=== PATIENT | male | born 1955 | race African-American/Black ===

== ENCOUNTER 2021-03-13 06:25 | Inpatient (IN) | payer MEDICAID ==
[~2021-03-13] VITALS: Ht 175.3 cm; Wt 116.8 kg
[2021-03-13 09:33] VITALS: BP 145/65; BMI 38.0
[2021-03-13 09:44] LABS: EOSINOPHILS 4.7 % (0-7); HEMATOCRIT 31.9 % (42.0-54.0); HEMOGLOBIN 10.8 g/dL (13.5-17.5); LYMPHOCYTES 25.8 % (15-50); MCH 31.8 pg (26.0-34.0); MCHC 33.9 g/dL (31.0-37.0); MCV 93.7 fL (80.0-100.0); MONOCYTES 14.4 % (2-11); NEUTROPHILS 54.1 % (40-80); PLATELET COUNT 92 10x3/uL (130-400); RDW 14.2 % (11.5-14.5); WBC 4.4 10x3/uL (4.8-10.8)
[2021-03-13 10:04] LABS: ANION GAP 11.3 mmol/L (8-16); CALCIUM 8.9 mg/dL (8.5-10.1); CARBON DIOXIDE 27.1 mmol/L (21.0-32.0); CREATININE - SERUM 2.6 mg/dL (0.6-1.3); POTASSIUM - SERUM 4.4 mmol/L (3.5-5.1)
[2021-03-13] MEDS ORDERED: HCTZ25 MG PO (10:29)
[2021-03-13] MEDS ORDERED: LASIX40 MG PO (10:29)
[2021-03-13] MEDS ORDERED: HYDRALAZINE HCL25 MG PO (10:29)
[2021-03-13] MEDS ORDERED: CLONIDINE HCL0.1 MG PO (10:29)
[2021-03-13] MEDS ORDERED: CYMBALTA30 MG PO (10:30)
[2021-03-13] MEDS ORDERED: VITAMIN D325 MC1 PO (10:30)
[2021-03-13] MEDS ORDERED: COZAAR100 MG PO (10:31)
[2021-03-13] MEDS ORDERED: ZYRTEC10 MG PO (10:31)
[2021-03-13] MEDS ORDERED: FERROUS SULFAT325 MG PO (10:31)
[2021-03-13] MEDS ORDERED: ASPIRIN81 MG PO (10:31)
[2021-03-13] MEDS ORDERED: ACETAMINOPHEN500 M1 PO (10:32)
[2021-03-13] MEDS ORDERED: FLUTICASONE PRO16 GM NASAL (10:32)
[2021-03-13] MEDS ORDERED: OMEPRAZOLE20 M1 PO (10:33)
[2021-03-13] MEDS ORDERED: FLOMAX0.4 MG PO (10:33)
[2021-03-13] MEDS ORDERED: LIPITOR20 MG PO (10:33)
[2021-03-13] MEDS ORDERED: PIOGLITAZONE15 MG PO (10:34)
[2021-03-13] MEDS ORDERED: METOPROLOL TART50 MG PO (10:34)
[2021-03-13] MEDS ORDERED: NORVASC10 MG PO (10:35)
[2021-03-13] MEDS ORDERED: K-TAB10 MEQ PO (10:36)
[2021-03-13 14:04] LABS: PLATELET ESTIMATE DECREASED
--- NOTE | 2021-03-13 15:36 | HP ---
PATIENT: MARIBEL GONZALEZ MEDICAL RECORD: [id number] ACCOUNT: [id number] LOCATION:[facility] : 57 ADMISSION DATE: 03/13/21 PCP: No PCP HISTORY AND PHYSICAL EXAMINATION CHIEF COMPLAINT: Cirrhosis. HISTORY OF PRESENT ILLNESS: The patient has been treated for hepatitis C. I am here to evaluate him for esophageal varices. He has had no dysphagia. He does have significant reflux. It sounds like volume reflux that he has at night. He refluxes up into his hypopharynx with some spill over into the trachea. A consent form was signed. MEDICINES: At the skilled nursing, have been reviewed. He is not on a blood thinner. ALLERGIES: HE HAS GOT SEASONAL ALLERGIES. SOCIAL HISTORY: Nonsmoker. PAST MEDICAL AND SURGICAL HISTORY: Hypertension; non-insulin dependent diabetes mellitus; chronic kidney disease, he is not on dialysis however; hyperlipidemia; benign prostatic hypertrophy. PHYSICAL EXAMINATION: GENERAL: The patient does not appear acutely ill. He does not appear chronically ill. VITAL SIGNS: Reviewed. EARS: External ears appear normal. EYES: Extraocular movements are intact. NECK: Trachea is midline. CHEST: No intercostal retractions. PULMONARY: Nonlabored. No stridor. IMPRESSION: History of hepatitis C, evaluated for varices. He has had no history of variceal bleeding. No emesis, no hematochezia, no melena. PLAN: EGD. TRANSINT:[id number] Voice Confirmation ID: [id number] DOCUMENT ID: [id number] cc: Dr. Mathieu Prajapati [phone] DORIE SCOTT MD at 1536 CC: DR. MATHIEU PRAJAPATI [phone] DICTATION DATE: 03/13/21 1129 SPRING ASSEMBLER SUPERVISOR: 03/13/21 1147 [address] [place] [address]
--- NOTE | 2021-03-13 15:36 | OP ---
PATIENT NAME: MARIBEL GONZALEZ MEDICAL RECORD: [id number] :57 LOCATION:[facility] ADMISSION DATE: SURGEON: DORIE SCOTT MD DATE OF OPERATION: 03/13/2021 PREOPERATIVE DIAGNOSIS: Hepatitis C, needs a variceal screening. POSTOPERATIVE DIAGNOSES: 1. Hepatitis C, needs a variceal screening. 2. Laryngospasm. 3. Multiple gastric polyps. 4. Moderate portal hypertensive gastritis. 5. No esophageal varices. PROCEDURE: Esophagogastroduodenoscopy with antral biopsy. SURGEON: Dorie Scott MD ENAMEL PULVERIZER: None. BLOOD LOSS: Minimal. ANESTHESIA: IV sedation with conversion to endotracheal anesthesia. The risks, possible complications and alternatives of the procedure were explained to the patient. He elects to proceed. The patient gives a history of some volume reflux symptoms that occur at night. ENDOSCOPIC COURSE: The patient was conveyed to the endoscopy suite electively on 03/13/2021. IV sedation was induced by the anesthesia staff. A bite block was inserted. Gastroscope was inserted into the mouth. It was advanced easily into the hypopharynx. Esophagus was easily intubated as well as stomach and duodenum. Upon withdrawal, retroflexed and angulus views were obtained. I was going to perform a hot biopsy forceps polypectomy and the patient had a sudden desaturation and I removed the gastroscope immediately. We began ventilating the patient with bag valve mask. The patient continued to have desaturations. Additional anesthesia personnel were called and a LMA was placed. We were able to ventilate the patient better with LMA. The anesthesia staff then placed an endotracheal tube. We then resumed the procedure. A bite block was inserted. A gastroscope was inserted into the mouth and was advanced easily into the hypopharynx. The esophagus was easily intubated as well as the stomach. A cold biopsy was obtained to rule out H. pylori. I did not attempt to remove any of the polyps. I slowly withdrew the endoscope up through the esophagus and noted no esophageal varices. There was some blood going down the esophagus, which I washed out, and some blood in the hypopharynx as well. I could not determine the source of any injury or the source of any bleeding. The gastroscope was removed. The patient was then conveyed to the recovery room where he extubated and seems to be doing well about a half hour later. My recommendation is going to be that he return and have the polyps removed as some of them appeared adenomatous and may have bled. This is going to need to be done in the operating room under general anesthesia. Also, I am going to tell Dr. Prajapati that I think the patient likely has sleep apnea and in this circumstance likely had volume reflux that went up and penetrated the cord OPERATIVE REPORT [id number] MARIBEL GONZALEZ causing the laryngospasm. He may be a candidate for sleep study and CPAP as I will bet that he is having significant desaturations and perhaps even laryngospasm at the [facility]. TRANSINT:[id number] Voice Confirmation ID: [id number] DOCUMENT ID: [id number] cc: Dr. Mathieu Prajapati, DORIE SCOTT MD at 1536 CC: DR. MATHIEU PRAJAPATI [phone] DICTATION DATE: 03/13/21 1324 CYBER SECURITY ENGINEER: 03/13/21 1356 [address] [facility] [address] [place] [address]
--- NOTE | 2021-03-13 16:29 | NUR ---
1345 REPORT OF O2 SAT LESS THAN 90% ON ROOM AIR TO Diogenes PARNELL CRNA. REPORT TO DR. RODRIGUES. ORDER RECEVIED FOR CXR. Juanjose JAIMES R.N. [address] SCOTT. ORDERS RECEIVED FOR UPDRAFT. UP TO BATHROOM VOIDED. SHIVERING. COMPLAINS OF FEELING COLD. TEMPORAL TEMP 97.3. Juanjose JAIMES R.N. 1430 BREATHING TREATMENTS COMPLETED. ON ROOM AIR O2 SAT 91%. Juanjose Michel.N. [address] SCOTT. Juanjose JAIMES R.N. 1510 UP TO BATHROOM, VOIDED. SHIVERING. ROUNDS BY DR. SCOTT. ADC GUARDS X'S 2 @ BEDSIDE. Juanjose JAIMES R.N.
--- NOTE | 2021-03-13 16:46 | NUR ---
4207 REPORT TO ANT PATEL R.N. PER PHONE. Juanjose JAIMES R.N.
[2021-03-13 17:21] VITALS: BP 170/79; Ht 175.3 cm; Wt 116.8 kg
--- NOTE | 2021-03-13 18:43 | NUR ---
PATIENT PLACED ON CONTINUOUS PULSE OX, SATURATION AT 95% ON RA
[2021-03-13 20:00] VITALS: BP 161/73
--- NOTE | 2021-03-13 20:00 | NUR ---
PT SITTING UP ON SIDE OF BED, AOX4. GUARD AT BEDSIDE. CONT PULSE OX ON. O2 97% ON 2L/NC. DENIES NEEDS AT THIS TIME. CL IN REACH
[2021-03-13 23:53] VITALS: BP 168/80
[2021-03-14 03:45] VITALS: BP 174/86
[2021-03-14 05:54] LABS: BASOPHILS 0.4 % (0-2); EOSINOPHILS 0.2 % (0-7); HEMATOCRIT 32.1 % (42.0-54.0); MCH 31.8 pg (26.0-34.0); MCHC 34.2 g/dL (31.0-37.0); MCV 92.9 fL (80.0-100.0); MEAN PLATELET VOLUME 9.7 fL (7.4-10.4); MONOCYTES 10.7 % (2-11); NEUTROPHILS 80.7 % (40-80); RBC 3.45 10x6/uL (4.20-6.10)
[2021-03-14 06:02] LABS: PLATELET COUNT 112 10x3/uL (130-400); WBC 10.1 10x3/uL (4.8-10.8)
[2021-03-14 06:04] LABS: ALBUMIN 3.6 g/dL (3.4-5.0); BILIRUBIN - TOTAL 0.5 mg/dL (0.2-1.3); CALCIUM 8.7 mg/dL (8.5-10.1); CARBON DIOXIDE 23.3 mmol/L (21.0-32.0); CREATININE - SERUM 2.4 mg/dL (0.6-1.3); MAGNESIUM - SERUM 1.8 mg/dL (1.8-2.4); PHOSPHOROUS 5.2 mg/dL (2.5-4.9); POTASSIUM - SERUM 4.3 mmol/L (3.5-5.1); PROTEIN - SERUM 7.4 g/dL (6.4-8.2)
--- NOTE | 2021-03-14 07:46 | NUR ---
RECIEVED BEDSIDE REPORT. BED LOW POSITION, CALL LIGHT IN REACH. SITTING UP ON SIDE OF THE BED. GUARD AT BEDSIDE. DENIES NEEDS AT THIS TIME. FREE FROM SIGNS OF DISTRESS. WILL CONTINUE TO MONITOR.
[2021-03-14 08:37] VITALS: BP 113/71
--- NOTE | 2021-03-14 09:34 | NUR ---
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 DISCUSSED WITH [facility] GROUP SALES MANAGER.
[2021-03-14 12:46] VITALS: BP 152/66
[2021-03-14 16:49] VITALS: BP 173/80
--- NOTE | 2021-03-14 19:46 | NUR ---
PT SITTING UP ON SIDE OF BED WITHOUT DISTRESS, GUARD AT BEDSIDE. AOX4. DENIES NEEDS OR PAIN AT THIS TIME. CL IN REACH
[2021-03-14 20:59] VITALS: BP 186/84
[2021-03-14 23:55] VITALS: BP 169/80
[2021-03-15 03:51] VITALS: BP 174/75
[2021-03-15 06:35] LABS: BASOPHILS 0.6 % (0-2); EOSINOPHILS 1.6 % (0-7); HEMATOCRIT 27.9 % (42.0-54.0); HEMOGLOBIN 9.4 g/dL (13.5-17.5); LYMPHOCYTES 16.2 % (15-50); MCH 31.7 pg (26.0-34.0); MCHC 33.9 g/dL (31.0-37.0); MCV 93.6 fL (80.0-100.0); MEAN PLATELET VOLUME 9.8 fL (7.4-10.4); MONOCYTES 11.3 % (2-11); NEUTROPHILS 70.3 % (40-80); RBC 2.98 10x6/uL (4.20-6.10); RDW 13.8 % (11.5-14.5)
[2021-03-15 06:38] LABS: ALBUMIN 3.1 g/dL (3.4-5.0); BILIRUBIN - TOTAL 0.42 mg/dL (0.2-1.3); CALCIUM 8.4 mg/dL (8.5-10.1); CARBON DIOXIDE 23.8 mmol/L (21.0-32.0); CREATININE - SERUM 2.3 mg/dL (0.6-1.3); MAGNESIUM - SERUM 1.9 mg/dL (1.8-2.4); PROTEIN - SERUM 6.4 g/dL (6.4-8.2)
[2021-03-15 06:49] LABS: PLATELET COUNT 89 10x3/uL (130-400); WBC 7.1 10x3/uL (4.8-10.8)
[2021-03-15 07:02] LABS: ANION GAP 12.7 mmol/L (8-16); PHOSPHOROUS 3.6 mg/dL (2.5-4.9); POTASSIUM - SERUM 3.5 mmol/L (3.5-5.1)
--- NOTE | 2021-03-15 07:46 | NUR ---
RECIEVED BEDSIDE REPORT. BED LOW POSITION, CALL LIGHT IN REACH. DENIES NEEDS AT THIS TIME. GUARD AT BEDSIDE. FREE FROM SIGNS OF DISTRESS. WILL CONTINUE TO MONITOR.
[2021-03-15 09:01] VITALS: BP 172/78
[2021-03-15 09:33] LABS: PLATELET ESTIMATE DECREASED; ROULEAUX OCC
--- NOTE | 2021-03-15 16:27 | NUR ---
DISCHARGE PAPERS COMPLETE. NO FURTHER QUESTIONS. REPORT CALLED TO [phone] AT THE [facility]. IV CATH REMOVED, CATH TIP INTACT. WAITING ON FACILITY TRANSPORT TO LEAVE.
[2021-03-15 17:15] VITALS: BP 170/80
--- NOTE | 2021-03-18 18:34 | MORECARE ---
CASE MANAGEMENT DISCHARGE SUMMARY PATIENT: MARIBEL GONZALEZ UNIT: [id number] ADM DATE: 03/14/21 AGE: 66 : 57 SEX: M ROOM/BED: D.2202 AUTHOR: JAIDEN,DOC PHYSICIAN: REFERRING PHYSICIAN: DORIE SCOTT MD DATE OF SERVICE: 03/18/21 Case Management Discharge Planning Summary DCP REVIEW SUMMARY ANTICIPATED D/C DATE: EXPECTED LOS : CASE STATUS: DCP Complete INITIAL REVIEW: 03/13/2021 INITIAL REVIEWER: Aileen Morel FINAL DISCHARGE DISPOSITION: : FINAL REVIEWER: FINAL REVIEW DATE: DCP [employer] Questions [employer] Answers QUESTION: ANSWER : PATIENT: MARIBEL GONZALEZ ENCOUNTER: [id number] MEDICAL RECORD#: [id number] ADMISSION DATE: 03/14/2021 DISCHARGE DATE: 03/15/2021 ATTENDING MD: DORIE DE LA CRUZ : AGE: 66 MARITAL STATUS: S DC PLAN ID: [id number] FACILITY: [facility] PRINTED ON: 03/18/21 18:34 CT All edits/amendments must be made on the electronic document DICTATION DATE: 03/18/211833 SECURITY SYSTEM ADMINISTRATOR: DM 03/18/211833 RPT#: [id number] DC DATE:03/15/21 STATUS: DIS IN [facility] [address] [place] [address] END OF REPORT
== END 2021-03-15 20:00 | DRG 204 ==
LOC: D.OPS 06:25 → D.MS 16:49 → D.OPS 18:57 → OBSVTIME 18:58 → D.MS 18:58
PROVIDERS: Anesthesiology; Family Medicine; ADMIT Surgery; ATTEND Surgery
PROC: 0DB78ZX Excision of Stomach, Pylorus, Via Natural or Artificial Opening Endoscopic, Diagnostic (ICD-10-PCS; principal; 2021-03-13 09:00)
DX: R06.03 Acute respiratory distress (principal); K76.6 Portal hypertension; J38.5 Laryngeal spasm; K21.9 Gastro-esophageal reflux disease without esophagitis; E11.22 Type 2 diabetes mellitus with diabetic chronic kidney disease; I12.9 Hypertensive chronic kidney disease with stage 1 through stage 4 chronic kidney disease, or unspecified chronic kidney disease; N18.9 Chronic kidney disease, unspecified; N40.0 Benign prostatic hyperplasia without lower urinary tract symptoms; E78.5 Hyperlipidemia, unspecified; K31.89 Other diseases of stomach and duodenum; K31.7 Polyp of stomach and duodenum; B19.20 Unspecified viral hepatitis C without hepatic coma